=== PATIENT | female | born 1955 | race Caucasian/White ===

== ENCOUNTER 2020-10-03 10:25 | Inpatient (IN) | payer OTHER ==
[2020-10-03] MEDS ORDERED: SODIUM CHLORIDE 0.9% 500 ML INFUS.BAG IV ONE (11:26)
[2020-10-03] MEDS ORDERED: methylPREDNISolone NA SUCC 125 MG/2 ML VIAL IVPUSH ONE (11:26)
[2020-10-03] MEDS ORDERED: FAMOTIDINE 20 MG/50 ML IVPB 20 MG/50 ML MG IVPB ONE ×2 (11:26→12:39)
[2020-10-03] MEDS ORDERED: CLINDAMYCIN IVPB 300 MG in DEXTROSE 5%-WATER - 48 ML IVPB ONE (11:27)
[2020-10-03] MEDS ORDERED: methylPREDNISolone NA SUCC 125 MG/2 ML VIAL ONE (12:39)
[2020-10-03 13:22] LABS: BASO % 0.4 % (0-2.0); EOS % 0.1 % (0-4.5); HEMATOCRIT 41.7 % (32.4-45.2); LYMPH % 15.6 % (8-40); MCH 28.8 pg (25.7-33.7); MCHC 33.6 g/dl (32.0-36.0); MEAN CELL VOLUME 85.7 fl (80-96); MEAN PLT VOLUME 8.8 fl (7.5-11.1); NEUT % 73.9 % (42.8-82.8); PLATELET COUNT 237 K/MM3 (134-434); RBC 4.86 M/mm3 (3.60-5.2); RDW 14.1 % (11.6-15.6); WHITE BLOOD COUNT 11.7 K/mm3 (4.0-10.0)
[2020-10-03 14:06] LABS: POTASSIUM 4.4 mmol/L (3.5-5.1)
[2020-10-03 14:09] LABS: ALBUMIN 3.8 g/dl (3.4-5.0); BLOOD UREA NITROGEN 21.6 mg/dL (7-18); CALCIUM 9.6 mg/dL (8.5-10.1)
[2020-10-03 14:11] LABS: CREATININE 1.4 mg/dL (0.55-1.3)
[2020-10-03 14:13] LABS: BILIRUBIN,TOTAL 0.7 mg/dL (0.2-1); TOT PROT 7.6 g/dl (6.4-8.2)
[2020-10-03] MEDS ORDERED: diphenhydrAMINE HCL 25 MG CAPSULE (FP) PO PRN (17:15)
[2020-10-03] MEDS ORDERED: CLINDAMYCIN 600MG PREMIX IVPB 600 MG/50 ML BAG IVPB SCH (18:00)
[2020-10-03] MEDS ORDERED: PIPERACILLIN/TAZOBACTAM 2.25 GM VIAL IVPB ONE (18:24)
[2020-10-03] MEDS ORDERED: DEXTROSE 5%-WATER - 50 ML IVPB ONE (18:24)
[2020-10-03] MEDS: PIPERACILLIN/TAZOB 2.25 GM 2.25 GM in DEXTROSE 5%-WATER - 50 ML IVPB SCH (18:29)
[2020-10-03] MEDS ORDERED: WATER IVPB ONE (18:30)
[2020-10-03] MEDS ORDERED: VANCOMYCIN PREMIX 1.5 GM 1,500 MG/300 ML BAG IVPB ONE (18:30)
[2020-10-03] MEDS ORDERED: DEXTROSE 5% IVPB ONE (18:30)
[2020-10-03] MEDS ORDERED: VANCOMYCIN HCL IVPB ONE (18:30)
[2020-10-03 18:53] VITALS: BMI 32.8
[2020-10-03] MEDS: INSULIN SLIDING SCALE (NOVOLOG) 1 VIAL SQ SCH (21:29)
[2020-10-03] MEDS ORDERED: INSULIN (NOVOLOG) ASPART 100 UNITS/ML 10ML VIAL ONE (21:30)
[2020-10-03] MEDS ORDERED: INSULIN (NOVOLOG) ASPART 100 UNITS/ML 10ML VIAL SQ ONE (22:35)
[2020-10-03] MEDS ORDERED: INSULIN (LEVEMIR) 100 UNITS/ML UNITS SQ ONE (23:03)
[2020-10-04] MEDS ORDERED: INSULIN (NOVOLOG) ASPART 100 UNITS/ML 10ML VIAL SQ ONE (00:21)
[2020-10-04] MEDS ORDERED: PIPERACILLIN/TAZOBACTAM 2.25 GM VIAL IVPB ONE ×2 (02:14→08:29)
[2020-10-04] MEDS ORDERED: DEXTROSE 5%-WATER - 50 ML IVPB ONE ×2 (02:14→08:29)
[2020-10-04] MEDS: PIPERACILLIN/TAZOB 2.25 GM 2.25 GM in DEXTROSE 5%-WATER - 50 ML IVPB SCH (03:00)
[2020-10-04] MEDS ORDERED: INSULIN (LEVEMIR) 100 UNITS/ML UNITS SQ ONE (05:48)
[2020-10-04] MEDS: INSULIN SLIDING SCALE (NOVOLOG) 1 VIAL SQ SCH ×4 (06:28→22:44)
[2020-10-04] MEDS: LEVOTHYROXINE NA 50 MCG TABLET (FP) PO SCH (06:28)
[2020-10-04 09:15] LABS: BASO % 0.5 % (0-2.0); HEMATOCRIT 37.2 % (32.4-45.2); HEMOGLOBIN 12.6 GM/dL (10.7-15.3); LYMPH % 13.6 % (8-40); MCH 28.7 pg (25.7-33.7); MEAN CELL VOLUME 84.6 fl (80-96); MEAN PLT VOLUME 8.8 fl (7.5-11.1); MONO % 9.9 % (3.8-10.2); PLATELET COUNT 233 K/MM3 (134-434); RBC 4.39 M/mm3 (3.60-5.2); RDW 13.6 % (11.6-15.6); WHITE BLOOD COUNT 16.1 K/mm3 (4.0-10.0)
[2020-10-04 09:20] LABS: POTASSIUM 4.1 mmol/L (3.5-5.1)
[2020-10-04] MEDS: INSULIN (LEVEMIR) 100 UNITS/ML UNITS SQ SCH ×2 (09:31→22:43)
[2020-10-04] MEDS: PANTOPRAZOLE 40 MG TABLET PO SCH (09:32)
[2020-10-04] MEDS: LOSARTAN POTASSIUM 50 MG TABLET PO SCH (09:32)
[2020-10-04] MEDS: ASPIRIN COATED 81 MG TABLET.EC PO SCH (09:32)
[2020-10-04 09:37] LABS: CALCIUM 9.1 mg/dL (8.5-10.1)
[2020-10-04 09:38] LABS: ALBUMIN 3.3 g/dl (3.4-5.0); BLOOD UREA NITROGEN 25.9 mg/dL (7-18)
[2020-10-04 09:40] LABS: CREATININE 1.3 mg/dL (0.55-1.3)
[2020-10-04 09:42] LABS: BILIRUBIN,TOTAL 0.5 mg/dL (0.2-1); TOT PROT 6.5 g/dl (6.4-8.2)
[2020-10-04] MEDS ORDERED: INSULIN (NOVOLOG) ASPART 100 UNITS/ML 10ML VIAL ONE (11:30)
[2020-10-04] MEDS ORDERED: diphenhydrAMINE HCL 50 MG CAPSULE PO PRN (17:36)
[2020-10-04] MEDS: diphenhydrAMINE HCL 25 MG CAPSULE (FP) PO PRN (18:25)
[2020-10-04] MEDS: HEPARIN NA (PORCINE) 5,000 UNITS/ML 1ML VIAL SQ SCH (22:49)
[2020-10-04 23:23] LABS: PH,URINE 6.5 (5.0-8.0); URINE APPEARANCE CLEAR; URINE BILIRUBIN NEGATIVE (NEGATIVE); URINE COLOR YELLOW; URINE GLUCOSE (UA) TRACE (NEGATIVE); URINE KETONE NEGATIVE (NEGATIVE); URINE LEUK ESTERASE NEGATIVE (NEGATIVE); URINE NITRITE NEGATIVE (NEGATIVE); URINE PROTEIN NEGATIVE (NEGATIVE); URINE UROBILINOGEN 0.2 mg/dL (0.2-1.0)
[2020-10-05] MEDS: INSULIN (LEVEMIR) 100 UNITS/ML UNITS SQ SCH ×2 (06:53→22:03)
[2020-10-05] MEDS: INSULIN SLIDING SCALE (NOVOLOG) 1 VIAL SQ SCH ×4 (06:53→22:03)
[2020-10-05] MEDS: HEPARIN NA (PORCINE) 5,000 UNITS/ML 1ML VIAL SQ SCH ×3 (06:53→22:04)
[2020-10-05] MEDS: LEVOTHYROXINE NA 50 MCG TABLET (FP) PO SCH (06:53)
[2020-10-05] MEDS: PANTOPRAZOLE 40 MG TABLET PO SCH (09:03)
[2020-10-05] MEDS: diphenhydrAMINE HCL 25 MG CAPSULE (FP) PO PRN (09:04)
[2020-10-05] MEDS: LOSARTAN POTASSIUM 50 MG TABLET PO SCH (09:04)
[2020-10-05] MEDS: ASPIRIN COATED 81 MG TABLET.EC PO SCH (09:04)
[2020-10-05 09:09] LABS: BASO % 0.7 % (0-2.0); EOS % 2.3 % (0-4.5); HEMATOCRIT 38.1 % (32.4-45.2); HEMOGLOBIN 12.7 GM/dL (10.7-15.3); LYMPH % 33.5 % (8-40); MCH 28.6 pg (25.7-33.7); MCHC 33.3 g/dl (32.0-36.0); MEAN CELL VOLUME 85.8 fl (80-96); MEAN PLT VOLUME 9.3 fl (7.5-11.1); MONO % 11.2 % (3.8-10.2); NEUT % 52.3 % (42.8-82.8); PLATELET COUNT 226 K/MM3 (134-434); RBC 4.44 M/mm3 (3.60-5.2)
[2020-10-05 09:22] LABS: POTASSIUM 4.2 mmol/L (3.5-5.1)
[2020-10-05 09:27] LABS: CALCIUM 8.9 mg/dL (8.5-10.1)
[2020-10-05 09:28] LABS: ALBUMIN 3.1 g/dl (3.4-5.0); BLOOD UREA NITROGEN 29.7 mg/dL (7-18); MAGNESIUM 2.2 mg/dL (1.8-2.4)
[2020-10-05 09:31] LABS: CREATININE 1.1 mg/dL (0.55-1.3)
[2020-10-05 09:32] LABS: BILIRUBIN,TOTAL 0.5 mg/dL (0.2-1)
[2020-10-05 09:34] LABS: TOT PROT 6.2 g/dl (6.4-8.2)
[2020-10-06] MEDS: HEPARIN NA (PORCINE) 5,000 UNITS/ML 1ML VIAL SQ SCH ×3 (06:41→21:37)
[2020-10-06] MEDS: LEVOTHYROXINE NA 50 MCG TABLET (FP) PO SCH (06:41)
[2020-10-06] MEDS: INSULIN (LEVEMIR) 100 UNITS/ML UNITS SQ SCH ×2 (06:42→21:38)
[2020-10-06] MEDS: INSULIN SLIDING SCALE (NOVOLOG) 1 VIAL SQ SCH ×4 (06:43→21:42)
[2020-10-06] MEDS: PANTOPRAZOLE 40 MG TABLET PO SCH (09:05)
[2020-10-06] MEDS: LOSARTAN POTASSIUM 50 MG TABLET PO SCH (09:05)
[2020-10-06] MEDS: ASPIRIN COATED 81 MG TABLET.EC PO SCH (09:05)
[2020-10-06 09:28] LABS: EOS % 3.8 % (0-4.5); HEMATOCRIT 39.2 % (32.4-45.2); HEMOGLOBIN 13.2 GM/dL (10.7-15.3); LYMPH % 35.8 % (8-40); MCH 29.1 pg (25.7-33.7); MCHC 33.8 g/dl (32.0-36.0); MEAN CELL VOLUME 86.2 fl (80-96); MEAN PLT VOLUME 9.4 fl (7.5-11.1); MONO % 11.2 % (3.8-10.2); NEUT % 48.2 % (42.8-82.8); PLATELET COUNT 232 K/MM3 (134-434); RBC 4.55 M/mm3 (3.60-5.2); RDW 13.7 % (11.6-15.6); WHITE BLOOD COUNT 9.7 K/mm3 (4.0-10.0)
[2020-10-06 09:43] LABS: POTASSIUM 4.1 mmol/L (3.5-5.1)
[2020-10-06 10:04] LABS: ALBUMIN 3.2 g/dl (3.4-5.0); BLOOD UREA NITROGEN 26.4 mg/dL (7-18); CALCIUM 9.1 mg/dL (8.5-10.1)
[2020-10-06 10:09] LABS: BILIRUBIN,TOTAL 0.6 mg/dL (0.2-1); TOT PROT 6.4 g/dl (6.4-8.2)
[2020-10-06] MEDS: diphenhydrAMINE HCL 25 MG CAPSULE (FP) PO PRN (16:09)
[2020-10-06] MEDS ORDERED: INSULIN (NOVOLOG) ASPART 100 UNITS/ML 10ML VIAL ONE (21:05)
[2020-10-07] MEDS: INSULIN (LEVEMIR) 100 UNITS/ML UNITS SQ SCH (06:59)
[2020-10-07] MEDS: HEPARIN NA (PORCINE) 5,000 UNITS/ML 1ML VIAL SQ SCH ×2 (06:59→15:37)
[2020-10-07] MEDS: LEVOTHYROXINE NA 50 MCG TABLET (FP) PO SCH (06:59)
[2020-10-07] MEDS: INSULIN SLIDING SCALE (NOVOLOG) 1 VIAL SQ SCH ×2 (07:03→12:08)
[2020-10-07 08:38] LABS: HEMOGLOBIN 13.6 GM/dL (10.7-15.3); MCH 28.9 pg (25.7-33.7); MCHC 33.9 g/dl (32.0-36.0); MEAN CELL VOLUME 85.4 fl (80-96); MEAN PLT VOLUME 8.6 fl (7.5-11.1); PLATELET COUNT 265 K/MM3 (134-434); RBC 4.69 M/mm3 (3.60-5.2); RDW 13.8 % (11.6-15.6); WHITE BLOOD COUNT 9.7 K/mm3 (4.0-10.0)
[2020-10-07 08:57] LABS: POTASSIUM 4.5 mmol/L (3.5-5.1)
[2020-10-07 08:59] LABS: CALCIUM 9.4 mg/dL (8.5-10.1)
[2020-10-07 09:01] LABS: ALBUMIN 3.6 g/dl (3.4-5.0); BLOOD UREA NITROGEN 20.2 mg/dL (7-18)
[2020-10-07 09:05] LABS: BILIRUBIN,TOTAL 0.6 mg/dL (0.2-1); TOT PROT 6.8 g/dl (6.4-8.2)
[2020-10-07] MEDS: ASPIRIN COATED 81 MG TABLET.EC PO SCH (09:52)
[2020-10-07] MEDS: PANTOPRAZOLE 40 MG TABLET PO SCH (09:52)
[2020-10-07] MEDS: diphenhydrAMINE HCL 25 MG CAPSULE (FP) PO PRN (09:58)
[2020-10-07] MEDS ORDERED: INSULIN (NOVOLOG) ASPART 100 UNITS/ML 10ML VIAL ONE (11:54)
[2020-10-07 14:39] VITALS: BP 104/59; PULSE 61; TEMP 98.3
== END 2020-10-07 17:11 | disposition home or self-care (01) | DRG 811 ==
LOC: JER 10:25 → JERBED 14:38 → J6S 16:44
PROVIDERS: ADMIT Student in an Organized Health Care Education/Training Program; ATTEND Internal Medicine
DX: T78.3XXA Angioneurotic edema, initial encounter (principal); L03.114 Cellulitis of left upper limb; I12.9 Hypertensive chronic kidney disease with stage 1 through stage 4 chronic kidney disease, or unspecified chronic kidney disease; E11.22 Type 2 diabetes mellitus with diabetic chronic kidney disease; N18.9 Chronic kidney disease, unspecified; K21.9 Gastro-esophageal reflux disease without esophagitis; E66.9 Obesity, unspecified; Z68.32 Body mass index [BMI] 32.0-32.9, adult; N17.9 Acute kidney failure, unspecified; E11.65 Type 2 diabetes mellitus with hyperglycemia; E03.9 Hypothyroidism, unspecified; M54.5 Low back pain; E87.0 Hyperosmolality and hypernatremia; T46.5X5A Adverse effect of other antihypertensive drugs, initial encounter; L23.6 Allergic contact dermatitis due to food in contact with the skin; R65.10 Systemic inflammatory response syndrome (SIRS) of non-infectious origin without acute organ dysfunction
CPT/HCPCS: 36415; 71046-TC-FY; 73110-TC-LT-FY; 73130-TC-LT-FY; 76775-TC; 80053; 81003; 82043; 82436; 82550; 82565; 82570; 82962; 83735; 84100; 84133; 84156; 84300; 84443; 85025; 85027; 86160; 87040; 93005; 93010; 93971; 99285-25; C9803; J1644; U0003

== ENCOUNTER → 2023-05-23 | Day surgery (SDC) | payer MEDICARE, OTHER | END | disposition home or self-care (01) | LOC: JRADUS-SUR 09:14 | PROVIDERS: ATTEND Family Medicine | PROC: 0H9U3ZX Drainage of Left Breast, Percutaneous Approach, Diagnostic (ICD-10-PCS; principal; 2023-05-23) | DX: D24.2 Benign neoplasm of left breast (principal) | CPT/HCPCS: 19083; 77065-TC; 87899; A4648 ==

== ENCOUNTER → 2023-07-09 | Day surgery (SDC) | payer MEDICARE, OTHER | END | disposition home or self-care (01) | LOC: JMAMMO-SUR 09:41 | PROVIDERS: ATTEND Surgery Surgical Oncology | PROC: BH3 Imaging, Skin, Subcutaneous Tissue and Breast, Magnetic Resonance Imaging (MRI) (ICD-10-PCS; principal; 2023-07-09) | DX: D24.2 Benign neoplasm of left breast (principal) | CPT/HCPCS: 19281; A4648 ==

== ENCOUNTER 2023-07-25 04:19 | Day surgery (SDC) | payer MEDICARE, OTHER ==
[2023-07-24 16:19] VITALS: BMI 32.1
[~2023-07-25 04:19] MED LIST: ceFAZolin SODIUM 1 GM VIAL IVPB ONE
[2023-07-25] MEDS ORDERED: BUPIVACAINE HCL/PF 0.5% (5MG/ML) 10 ML VIAL ONE ×2 (14:29→14:38)
[2023-07-25] MEDS ORDERED: LIDOCAINE 1%/EPI 1:100000 (20 ML MULTI DOSE VIAL) ONE ×2 (14:29→14:38)
[2023-07-25] MEDS ORDERED: ONDANSETRON 4 MG/2 ML VIAL ONE (15:54)
[2023-07-25] MEDS ORDERED: MIDAZOLAM HCL 2 MG/2 ML SINGLE DOSE VIAL ONE (15:54)
[2023-07-25] MEDS ORDERED: LIDOCAINE HCL/PF 2% SDV 5ML VIAL ONE (15:54)
[2023-07-25] MEDS ORDERED: KETOROLAC TROMETHAMINE 30 MG/1 ML VIAL ONE (15:54)
[2023-07-25] MEDS ORDERED: PROPOFOL 20 ML ONE (15:54)
[2023-07-25] MEDS ORDERED: BUPIVACAINE HCL/PF 0.5% (5 MG/ML) 30 ML VIAL IJ ONE ×2 (16:15)
[2023-07-25] MEDS ORDERED: LIDOCAINE 1%/EPI 1:100000 (20 ML MULTI DOSE VIAL) INF ONE ×2 (16:15)
[2023-07-25] MEDS ORDERED: oxyCODONE HCL 5 MG TABLET PO PRN (16:52)
[2023-07-25] MEDS ORDERED: ONDANSETRON 4 MG/2 ML VIAL IVPUSH PRN (16:52)
[2023-07-25] MEDS ORDERED: ACETAMINOPHEN 1000 MG/100 ML BAG IVPB PRN (16:53)
[2023-07-25] MEDS ORDERED: LACTATED RINGERS SOLUTION 1,000 ML IV SCH (17:00)
[2023-07-25] MEDS ORDERED: ACETAMINOPHEN INJECTION 100 ML IVPB ONE (17:01)
[2023-07-25 17:27] VITALS: RESP 16
[2023-07-25 18:31] VITALS: BP 136/66; PULSE 61; TEMP 97
== END 2023-07-25 18:30 | disposition home or self-care (01) ==
LOC: JASU-SURG 04:19
PROVIDERS: ATTEND Surgery Surgical Oncology
PROC: 0HBU0ZX Excision of Left Breast, Open Approach, Diagnostic (ICD-10-PCS; principal; 2023-07-25 16:00)
DX: D24.2 Benign neoplasm of left breast (principal); N62 Hypertrophy of breast; N60.12 Diffuse cystic mastopathy of left breast; N64.89 Other specified disorders of breast
CPT/HCPCS: 76098-TC-FY; 82962; 88307-TC; 88341-TC; 88342-TC; 94760

== ENCOUNTER 2023-08-28 11:36 | Emergency (ER) | payer MEDICARE, OTHER ==
[2023-08-28 11:45] VITALS: RESP 18; BMI 32.0
[2023-08-28] MEDS ORDERED: FAMOTIDINE 20 MG/50 ML IVPB 20 MG/50 ML MG IVPB ONE ×2 (12:29→12:43)
[2023-08-28] MEDS ORDERED: SODIUM CHLORIDE 1,000 ML IV STA (12:29)
[2023-08-28] MEDS ORDERED: methylPREDNISolone NA SUCC 125 MG/2 ML VIAL IVPB ONE (12:30)
[2023-08-28] MEDS ORDERED: methylPREDNISolone NA SUCC 125 MG/2 ML VIAL ONE ×2 (12:43→13:27)
[2023-08-28 13:34] LABS: BASO % 0.5 % (0-2.0); EOS % 2.5 % (0-4.5); HEMATOCRIT 47.6 % (32.4-45.2); HEMOGLOBIN 15.6 GM/dL (10.7-15.3); LYMPH % 27.5 % (8-40); MCH 27.2 pg (25.7-33.7); MCHC 32.7 g/dl (32.0-36.0); MEAN CELL VOLUME 83.1 fl (80-96); MEAN PLT VOLUME 8.8 fl (7.5-11.1); MONO % 10.5 % (3.8-10.2); PLATELET COUNT 251 10^3/uL (134-434); RBC 5.72 M/mm3 (3.60-5.2); RDW 15.3 % (11.6-15.6); WHITE BLOOD COUNT 13.2 K/mm3 (4.0-10.0)
[2023-08-28 13:52] LABS: POTASSIUM 4.3 mmol/L (3.5-5.1)
[2023-08-28 13:55] LABS: ALBUMIN 3.7 g/dl (3.4-5.0); BLOOD UREA NITROGEN 18.2 mg/dL (7-18)
[2023-08-28 13:59] LABS: BILIRUBIN,TOTAL 0.5 mg/dL (0.2-1); CREATININE 1.2 mg/dL (0.55-1.3); TOT PROT 7.7 g/dl (6.4-8.2)
[2023-08-28 14:26] VITALS: BP 120/72; PULSE 66; TEMP 98.8
== END 2023-08-28 15:21 | disposition home or self-care (01) ==
LOC: JERFT 11:36
PROC: 3E033GC Introduction of Other Therapeutic Substance into Peripheral Vein, Percutaneous Approach (ICD-10-PCS; principal; 2023-08-28)
PROC: 3E033GC Introduction of Other Therapeutic Substance into Peripheral Vein, Percutaneous Approach (ICD-10-PCS; 2023-08-28)
PROC: 3E033GC Introduction of Other Therapeutic Substance into Peripheral Vein, Percutaneous Approach (ICD-10-PCS; 2023-08-28)
DX: T78.40XA Allergy, unspecified, initial encounter (principal); R21 Rash and other nonspecific skin eruption; H02.843 Edema of right eye, unspecified eyelid; H02.846 Edema of left eye, unspecified eyelid
CPT/HCPCS: 36415; 80053; 85025; 99284-25

== ENCOUNTER 2023-09-11 19:29 | Emergency (ER) | payer MEDICARE, OTHER ==
[2023-09-11 19:34] VITALS: BMI 32.0
[2023-09-11] MEDS ORDERED: diphenhydrAMINE HCL 25 MG CAPSULE (FP) PO ONE ×2 (20:57→21:02)
[2023-09-11] MEDS ORDERED: DEXAMETHASONE SOD PHOSPHATE 10 MG/1 ML VIAL PO ONE (20:58)
[2023-09-11] MEDS ORDERED: DEXAMETHASONE SOD PHOSPHATE 10 MG/1 ML VIAL ONE (21:03)
[2023-09-11] MEDS ORDERED: HYDROCORTISONE 2.5% TOPICAL CREAM 30 GM TUBE TP ONE (21:45)
[2023-09-11] MEDS ORDERED: SODIUM CHLORIDE 0.9% 500 ML INFUS.BAG IV ONE (22:47)
[2023-09-11 23:53] LABS: HEMATOCRIT 43.3 % (32.4-45.2); HEMOGLOBIN 14.8 GM/dL (10.7-15.3); MCH 28.1 pg (25.7-33.7); MCHC 34.2 g/dl (32.0-36.0); MEAN CELL VOLUME 82.3 fl (80-96); MEAN PLT VOLUME 8.6 fl (7.5-11.1); PLATELET COUNT 259 10^3/uL (134-434); RBC 5.25 M/mm3 (3.60-5.2); RDW 15.3 % (11.6-15.6); WHITE BLOOD COUNT 20.3 K/mm3 (4.0-10.0)
[2023-09-12 00:20] LABS: POTASSIUM 3.6 mmol/L (3.5-5.1)
[2023-09-12 00:22] LABS: CALCIUM 9.6 mg/dL (8.5-10.1)
[2023-09-12 00:23] LABS: ALBUMIN 3.6 g/dl (3.4-5.0); BLOOD UREA NITROGEN 13.6 mg/dL (7-18)
[2023-09-12 00:26] LABS: CREATININE 1.2 mg/dL (0.55-1.3)
[2023-09-12 00:27] LABS: BILIRUBIN,TOTAL 0.6 mg/dL (0.2-1); TOT PROT 7.1 g/dl (6.4-8.2)
[2023-09-12 01:46] VITALS: BP 125/74; PULSE 77; RESP 16; TEMP 97.9
[2023-09-12 05:31] LABS: ERYTHROCYTE SEDIMENTATION RATE 6 mm/hr (0-30)
[2023-09-12 05:35] LABS: ANISOCYTOSIS 3+; MACROCYTOSIS 0; ROULEAU 1+; TARGET CELLS 1+
== END 2023-09-12 02:09 | disposition home or self-care (01) ==
LOC: JER 19:29 → JERFT 19:29 → JER 09-12 02:09
DX: L23.9 Allergic contact dermatitis, unspecified cause (principal); L29.9 Pruritus, unspecified; L53.9 Erythematous condition, unspecified
CPT/HCPCS: 36415; 80053; 85025; 85651; 86140; 99284-25; J1100

== ENCOUNTER 2025-05-12 06:09 | Day surgery (SDC) | payer OTHER ==
[2025-05-08 11:32] VITALS: BMI 29.6
[2025-05-12 09:04] VITALS: TEMP 98.3
[2025-05-12 09:38] VITALS: BP 107/55; PULSE 56; RESP 20
== END 2025-05-12 09:42 | disposition home or self-care (01) ==
LOC: JASU-ENDO 06:09
PROVIDERS: ATTEND Internal Medicine Gastroenterology
PROC: 0DBN8ZX Excision of Sigmoid Colon, Via Natural or Artificial Opening Endoscopic, Diagnostic (ICD-10-PCS; 2025-05-12)
PROC: 0DBK8ZX Excision of Ascending Colon, Via Natural or Artificial Opening Endoscopic, Diagnostic (ICD-10-PCS; principal; 2025-05-12 08:00)
DX: Z12.11 Encounter for screening for malignant neoplasm of colon (principal); D12.2 Benign neoplasm of ascending colon; D12.5 Benign neoplasm of sigmoid colon; K64.8 Other hemorrhoids; K57.30 Diverticulosis of large intestine without perforation or abscess without bleeding